=== PATIENT | male | born 1965 | race Caucasian/White ===

== ENCOUNTER 2022-04-28 13:42 | Outpatient (CLI) | payer BC | END 2022-04-28 13:43 | disposition home or self-care (01) | LOC: RAD 13:42 | PROVIDERS: ATTEND Internal Medicine Critical Care Medicine | DX: R06.09 Other forms of dyspnea (principal) | CPT/HCPCS: 71046 ==

== ENCOUNTER 2023-03-26 08:06 | Outpatient (CLI) | payer BC | END 2023-03-26 08:07 | disposition home or self-care (01) | LOC: NM 08:06 | PROVIDERS: ATTEND Internal Medicine | DX: K21.9 Gastro-esophageal reflux disease without esophagitis (principal); R11.2 Nausea with vomiting, unspecified; Z86.010 Personal history of colon polyps | CPT/HCPCS: 78264; A9541 ==